=== PATIENT | male | born 1960 | race Caucasian/White ===

== ENCOUNTER → 2020-08-06 | Outpatient (CLI) | payer BC | LOC: LAB 12:35 | PROVIDERS: ATTEND Family Medicine | DX: U07.1 COVID-19 (principal) ==

== ENCOUNTER → 2021-02-09 | Outpatient (CLI) | payer OTHER | LOC: CAT 12:20 | PROVIDERS: ATTEND Internal Medicine | DX: Z13.6 Encounter for screening for cardiovascular disorders (principal); E78.00 Pure hypercholesterolemia, unspecified; I25.10 Atherosclerotic heart disease of native coronary artery without angina pectoris ==

== ENCOUNTER → 2021-02-28 | Outpatient (CLI) | payer BC, OTHER | LOC: SJCVCIMAG 10:13 | PROVIDERS: ATTEND Internal Medicine | DX: I35.1 Nonrheumatic aortic (valve) insufficiency (principal) ==

== ENCOUNTER → 2021-02-28 | Outpatient (CLI) | payer BC, OTHER | LOC: CAT 14:07 | PROVIDERS: ATTEND Internal Medicine | DX: I71.2 Thoracic aortic aneurysm, without rupture (principal); I25.10 Atherosclerotic heart disease of native coronary artery without angina pectoris; I71.6 Thoracoabdominal aortic aneurysm, without rupture; I70.0 Atherosclerosis of aorta; I70.1 Atherosclerosis of renal artery; N40.0 Benign prostatic hyperplasia without lower urinary tract symptoms; M47.814 Spondylosis without myelopathy or radiculopathy, thoracic region ==